=== PATIENT | female | born 1990 | race Two or more races ===

== ENCOUNTER 2017-02-15 22:33 | Emergency (ER) | payer OTHER ==
[~2017-02-15] VITALS: Ht 149.9 cm; Wt 57.2 kg
[2017-02-15 23:02] VITALS: BP 99/64
[2017-02-15 23:46] LABS: KETONES,URINE NEGATIVE (NEGATIVE); LEUKOCYTE ESTERASE ,URINE 2+ (NEGATIVE); NITRITE,URINE NEGATIVE (NEGATIVE); PH,URINE 8 (4.5-8.0); PROTEIN,URINE NEGATIVE (NEGATIVE); UROBILINOGEN,URINE 4 MG/DL (0.0-1.0)
[2017-02-15 23:57] LABS: APPEARANCE,URINE SLIGHTLY CLOUDY
[2017-02-16 00:05] VITALS: BP 105/62
[2017-02-16 00:14] LABS: RBC,URINE 0-2 /HPF (0 - 2); SQUAMOUS EPITHELIAL CELL,UR MANY /LPF (NONE/OCC)
[2017-02-16 00:15] LABS: AMORPHOUS SEDIMENT,UR MANY /LPF; BACTERIA,URINE FEW /HPF
[2017-02-16] MEDS ORDERED: NITROFURANTOIN100 M2 ORAL (00:30)
[2017-02-16] MEDS ORDERED: METROGEL-VAGINA70 G1 VAGIN (00:30)
[2017-02-16 00:35] VITALS: BP 105/62
--- NOTE | 2017-02-16 05:17 | Emergency Room Report ---
History of Present Illness General Chief Complaint: Female Urogenital Problems Source: Patient Present Illness HPI Patient presents with complaints of vaginal itching and mild discharge She also complains of dysuria Pain in the suprapubic area as 01/28 Denies any back or flank pain patient is not currently sexually active Denies any fevers or chills denies any rash Denies any fall or trauma Allergies: Coded Allergies: No Known Allergies (Unverified , 02/15/17) Patient History Past Medical History: see triage record Pertinent Family History: none Last Menstrual Period: 01/28/17 Now: No Reviewed Nursing Documentation: PMH: Agreed, PSxH: Agreed Nursing Documentation-PMH Past Medical History: No Stated History Review of Systems All Other Systems: negative except mentioned in HPI Physical Exam Vital Signs Date Time Temp Pulse Resp B/P Pulse Ox O2 Delivery O2 Flow Rate FiO2 02/15/17 22:53 98.1 68 16 96/62 99 Room Air Sp02 EP Interpretation: reviewed, normal General Appearance: well appearing, no apparent distress Head: normocephalic, atraumatic Eyes: bilateral eye EOMI, bilateral eye PERRL ENT: hearing grossly normal, normal pharynx, TMs + canals normal, uvula midline Neck: full range of motion, supple, no meningismus, no bony tend Respiratory: lungs clear, normal breath sounds, no rhonchi, no respiratory distress, no retraction, no accessory muscle use Cardiovascular #1: normal peripheral pulses, regular rate, rhythm, no edema, no gallop, no JVD, no murmur Gastrointestinal: normal bowel sounds, non tender, soft, no mass, no organomegaly, non-distended, no guarding, no hernia, no pulsatile mass, no rebound Genitourinary: no CVA tenderness Musculoskeletal: normal inspection Neurologic: oriented x3, responsive, director of enterprise strategy III-XII nml as tested, motor strength/ tone normal, sensory intact Psychiatric: mood/affect normal Skin: normal color, no rash, warm/dry, palpation normal Lymphatic: normal inspection, no adenopathy Medical Decision Making Diagnostic Impression: Primary Impression: vaginitis Additional Impression: uti ER Course Patient has clinical history findings of vaginitis further vaginal exam was not performed in the ER Patient treated symptomatically urine sample also shows some bacteria and patient placed on oral antibiotics Labs Test 02/15/17 23:20 Urine Color Pale yellow Urine Appearance Slightly cloudy Urine pH 8 (4.5-8.0) Urine Specific [place] 1.015 (1.005-1.035) Urine Protein Negative (NEGATIVE) Urine Glucose (UA) Negative (NEGATIVE) Urine Ketones Negative (NEGATIVE) Urine Occult Blood Negative (NEGATIVE) Urine Nitrite Negative (NEGATIVE) Urine Bilirubin Negative (NEGATIVE) Urine Urobilinogen 4 MG/DL (0.0-1.0) Urine Leukocyte Esterase 2+ (NEGATIVE) Urine RBC 0-2 /HPF (0 - 2) Urine WBC 2-4 /HPF (0 - 2) Urine Squamous Epithelial Cells Many /LPF (NONE/OCC) Urine Amorphous Sediment Many /LPF (NONE) Urine Bacteria Few /HPF (NONE) Urine HCG, Qualitative Negative Last Vital Signs Date Time Temp Pulse Resp B/P Pulse Ox O2 Delivery O2 Flow Rate FiO2 02/16/17 00:35 97.9 74 18 105/62 100 Room Air Status: improved Disposition: HOME, SELF-CARE Condition: Stable Scripts Metronidazole* (METROGEL-VAGINAL*) 70 Gm Gel.w.appl 1 APPL VAGIN EVERY 12 HOURS for 7 Days, #70 GM Prov: JAMEEL MATAMOROS D.O. 02/16/17 Nitrofurantoin Monohyd/M-Cryst* (MACROBID 100 MG*) 100 Mg Capsule 100 MG ORAL EVERY 12 HOURS for 5 Days, CAP Prov: JAMEEL MATAMOROS D.O. 02/16/17 Referrals: NON PHYSICIAN (PCP) Patient Instructions: Urinary Tract Infection, Vaginitis Additional Instructions: Patient is provided with the discharge instructions notified to follow up with primary doctor in the next 2-3 days otherwise return to the er with any worsening symptoms. Please note that this report is being documented using [employer] technology. This can lead to erroneous entry secondary to incorrect interpretation by the dictating instrument. JAMEEL MATAMOROS D.O. Feb 16, 2017 05:17
== END 2017-02-16 00:35 | disposition home or self-care (01) ==
LOC: EMR 23:25
DX: N76.0 Acute vaginitis (principal); N39.0 Urinary tract infection, site not specified
CPT/HCPCS: 81003; 81025; 99284

== ENCOUNTER 2017-02-19 21:34 | Emergency (ER) | payer OTHER ==
[~2017-02-19] VITALS: Ht 147.3 cm; Wt 59.0 kg
[~2017-02-19 21:34] MED LIST: METROGEL-VAGINA70 G1 VAGIN; NITROFURANTOIN100 M2 ORAL
--- NOTE | 2017-02-19 21:54 | Emergency Room Report ---
History of Present Illness General Chief Complaint: Female Urogenital Problems Source: Patient Present Illness HPI This is a 26-year-old female with no significant past medical history. She presents with chief complaint of vaginal itching and burning. Onset for last 5 days. She was here initially 2 days ago. Diagnosed with vaginitis and prescribe MetroGel and also given antibiotics or posterior tract infection. She said initially she felt some burning and itching in one to. Now the multiple pimple. Clear fluids try to pop it. Denies any fever chills denies any nausea vomiting. Burning with urination. Itchy. No other discharge. Allergies: Coded Allergies: No Known Allergies (Unverified , 02/15/17) Patient History Past Medical History: none, see triage record, old chart reviewed Past Surgical History: other Pertinent Family History: none Social History: Denies: smoking Last Menstrual Period: END OF LAST MONTH Now: No : 6 Para: 1 Immunizations: other Reviewed Nursing Documentation: PMH: Agreed, PSxH: Agreed Review of Systems Eye: Denies: blurred vision, eye pain ENT: Denies: ear pain, nose congestion, throat swelling Respiratory: Denies: cough, shortness of breath Cardiovascular: Denies: chest pain, palpitations Gastrointestinal: Denies: abdominal pain, diarrhea, nausea, vomiting Genitourinary: Reports: dysuria Musculoskeletal: Denies: back pain, joint pain Skin: Denies: rash Neurological: Denies: headache, numbness Endocrine: Denies: increased thirst, increased urine Hematologic/Lymphatic: Denies: easy bruising All Other Systems: negative except mentioned in HPI Physical Exam Vital Signs Date Time Temp Pulse Resp B/P Pulse Ox O2 Delivery O2 Flow Rate FiO2 02/19/17 21:39 97.5 83 18 107/73 98 Room Air vitals normal Sp02 EP Interpretation: reviewed, normal General Appearance: well appearing, no apparent distress, alert Head: normocephalic, atraumatic Eyes: bilateral eye EOMI, bilateral eye PERRL ENT: hearing grossly normal, normal pharynx Neck: full range of motion, supple, no meningismus Respiratory: chest non-tender, lungs clear, normal breath sounds Cardiovascular #1: regular rate, rhythm, no murmur Gastrointestinal: normal bowel sounds, non tender, no mass, no organomegaly, no bruit, non-distended Genitourinary: other - exam done with female RN as buyer. She has vesicular lesions to the outside of the labia majora. no internal lesions. Musculoskeletal: back normal, gait/station normal, normal range of motion Psychiatric: mood/affect normal Skin: warm/dry Medical Decision Making Diagnostic Impression: Primary Impression: Herpes simplex labialis ER Course She presents with lesion concerning for herpes labialis. His been ongoing for for 5 days now. Outside the window for acyclovir. We'll treat symptomatically. We'll discharge home. Last Vital Signs Date Time Temp Pulse Resp B/P Pulse Ox O2 Delivery O2 Flow Rate FiO2 02/19/17 21:39 97.5 83 18 107/73 98 Room Air Status: improved Disposition: HOME, SELF-CARE Condition: Stable Scripts Lidocaine Hcl (LIDOCAINE HCL) 5 Ml Jel.pf.ade 5 ML MM QID, #15 ML Prov: GAURAV MENDOZA M.D. 02/19/17 Additional Instructions: Followup with your Dr. in 7 days. Return if symptom worsen. GAURAV MENDOZA M.D. February 19, 2017 21:54
[2017-02-19] MEDS ORDERED: LIDOCAINE HCL5 ML MM (22:20)
[2017-02-19 22:36] VITALS: BP 106/66
== END 2017-02-19 22:41 | disposition home or self-care (01) ==
LOC: EMR 22:06
DX: B00.1 Herpesviral vesicular dermatitis (principal)
CPT/HCPCS: 99283

== ENCOUNTER 2018-02-26 18:52 | Emergency (ER) | payer OTHER ==
[~2018-02-26] VITALS: Ht 149.9 cm; Wt 56.7 kg
[~2018-02-26 18:52] MED LIST changes: +LIDOCAINE HCL5 ML MM
[2018-02-26 19:19] VITALS: BP 93/62
[2018-02-26] MEDS ORDERED: Ketorolac 60mg Inj IM ONE (20:15)
--- NOTE | 2018-02-26 20:27 | Emergency Room Report ---
History of Present Illness General Chief Complaint: Back Pain-No Injury Source: Patient Present Illness HPI 27-year-old female presents to the emergency department complaining of 8 out of 10 in severity left-sided low back pain that she has been having for approximately one year however she is having moderate exacerbation since yesterday. Patient denies recent trauma or fall she reports moving several pallets yesterday at work otherwise no strenuous activities. Patient denies fevers, chills, recent spinal procedures, history of neoplastic disease. She denies radiation of her pain. She denies dysuria, urinary frequency, urgency or abdominal pain. Denies numbness tingling or loss of sensation or gross motor movements of the extremities, incontinence of bowel or bladder. Denies CP, Palpitations, LOC, AMS, dizziness, Changes in Vision, Sensation, paresthesias, or a sudden severe headache. Allergies: Coded Allergies: No Known Allergies (Unverified , 02/15/17) Patient History Past Medical History: see triage record Past Surgical History: none Pertinent Family History: none Last Menstrual Period: unknown, on control Now: No : 5 Para: 5 Reviewed Nursing Documentation: PMH: Agreed; PSxH: Agreed Review of Systems All Other Systems: negative except mentioned in HPI Physical Exam Vital Signs Date Time Temp Pulse Resp B/P (MAP) Pulse Ox O2 Delivery O2 Flow Rate FiO2 02/26/18 19:09 98.1 67 18 93/62 98 Room Air 98.1 Sp02 EP Interpretation: reviewed, normal General Appearance: no apparent distress, alert, GCS 15, non-toxic Head: normocephalic, atraumatic Eyes: bilateral eye normal inspection, bilateral eye PERRL ENT: hearing grossly normal, normal voice Neck: full range of motion, no bony tend Respiratory: chest non-tender, lungs clear, normal breath sounds, speaking full sentences Cardiovascular #1: regular rate, rhythm Gastrointestinal: normal bowel sounds, non tender, soft Genitourinary: normal inspection, no CVA tenderness Musculoskeletal: back normal, gait/station normal, normal range of motion, other - No midline bony tenderness no evidence of infection no evidence of cauda equina on physical exam. Tenderness is in the left paraspinal musculature of the lumbar spine. She is ambulatory with a steady gait and has full range of motion, tender - left lumbar paraspinal musculature Neurologic: alert, oriented x3, responsive, motor strength/tone normal, sensory intact, normal gait, speech normal, grossly normal Psychiatric: judgement/insight normal Skin: normal color, no rash, warm/dry, well hydrated Medical Decision Making PA Attestation Dr. Valdivia is my supervising physician whom pt. management has been discussed with. Diagnostic Impression: Primary Impression: Back pain Qualified Codes: M54.5 - Low back pain Additional Impression: Muscle spasm of back ER Course 27-year-old female presents to the emergency department complaining of 8 out of 10 in severity left-sided low back pain that she has been having for approximately one year however she is having moderate exacerbation since yesterday. Patient denies recent trauma or fall she reports moving several pallets yesterday at work otherwise no strenuous activities. Patient denies fevers, chills, recent spinal procedures, history of neoplastic disease. She denies radiation of her pain. She denies dysuria, urinary frequency, urgency or abdominal pain. Denies numbness tingling or loss of sensation or gross motor movements of the extremities, incontinence of bowel or bladder. Denies CP, Palpitations, LOC, AMS, dizziness, Changes in Vision, Sensation, paresthesias, or a sudden severe headache. Ddx considered but are not limited to Fracture, dislocation, contusion, epidural abscess, Sprain/Strain/Spasm Vital signs: are WNL, pt. is afebrile H&PE are most consistent with muscle spasm- No midline bony tenderness no evidence of infection no evidence of cauda equina on physical exam. Tenderness is in the left paraspinal musculature of the lumbar spine. She is ambulatory with a steady gait and has full range of motion. No CVA tenderness ORDERS: none required at this time.--Diagnosis is clinical ED INTERVENTIONS: -Toradol IM DISCHARGE: At this time pt. is stable for d/c to home. Will provide printed patient care instructions, and any necessary prescriptions. Care plan and follow up instructions have been discussed with the patient prior to discharge. Last Vital Signs Date Time Temp Pulse Resp B/P (MAP) Pulse Ox O2 Delivery O2 Flow Rate FiO2 02/26/18 20:20 98.1 02/26/18 19:19 71 18 93/62 98 Room Air Disposition: HOME, SELF-CARE Condition: Stable Scripts Lidocaine (Lidoderm) 1 Each Adh..patch 1 PATCH TOPIC DAILY, #30 PATCH 0 Refills Patch(es) may remain in place for up to 12 hours in any 24-hour period. Prov: Cindy Gaviria 02/26/18 Methocarbamol* (ROBAXIN*) 500 Mg Tablet 1000 MG PO TID for 7 Days, #42 TAB 0 Refills Prov: Cindy Gaviria 02/26/18 Referrals: [facility],REFERRING (PCP) Departure Forms: Return to Work Return to Work Date: February 28, 2018 Work Restrictions: No Heavy Lifting, No Prolonged Standing Other Restrictions: light duty x 1 week. Return to Full Activity: March 07, 2018 Patient Instructions: Back Pain, Adult Additional Instructions: Take medications as directed. Follow up with a Primary Care Provider in 3-5 days, even if your symptoms have resolved. --Please review list of primary care clinics, if you do not already have a primary care provider Return sooner to ED if new symptoms occur, or current symptoms become worse. Do not drink alcohol, drive, or operate heavy machinery while taking Muscle Relaxers as this may cause drowsiness. - Please note that this Emergency Department Report was dictated using [employer] technology software, occasionally this can lead to erroneous entry secondary to interpretation by the dictation equipment. Cindy Gaviria February 26, 2018 20:27
[2018-02-26] MEDS ORDERED: ROBAXIN500 MG PO (20:28)
[2018-02-26] MEDS ORDERED: LIDODERM700 M1 TOPIC (20:28)
[2018-02-26 20:37] VITALS: BP 93/62
== END 2018-02-26 20:40 | disposition home or self-care (01) ==
LOC: EMR 19:48
DX: M54.5 Low back pain (principal); M62.830 Muscle spasm of back
CPT/HCPCS: 96372; 99284

== ENCOUNTER 2018-12-02 20:53 | Emergency (ER) | payer SELFPAY ==
[~2018-12-02] VITALS: Ht 147.3 cm; Wt 65.3 kg
[~2018-12-02 20:53] MED LIST changes: +LIDODERM700 M1 TOPIC; +ROBAXIN500 MG PO
[2018-12-02] MEDS ORDERED: PEPTO-BISMOL262 M1 PO (21:14)
[2018-12-02 21:25] VITALS: BP 105/74
--- NOTE | 2018-12-02 21:25 | NUR ---
ED Nurse Note: PT CAME TO ED FROM HOME C/O ABD PAIN X1 DAY. PER PT SHE HAD A BURRITO LAST NIGHT. TODAY SHE HAS BEEN HAVING WATERY DIARRHEA AND CRAMPING ABDOMEN, PAIN IS 7/10
[2018-12-02] MEDS: Ketorolac 30mg Inj IV ONE (21:45)
[2018-12-02 21:52] LABS: BASOPHILS % (AUTO) 0.5 % (0.0-2.0); EOSINOPHILS % (AUTO) 1.4 % (0.0-3.0); HEMATOCRIT 42.4 % (37.0-47.0); HEMOGLOBIN 14.5 G/DL (12.0-16.0); LYMPHOCYTES % (AUTO) 12.6 % (20.0-45.0); MEAN CORPUSCULAR VOLUME 91 FL (80-99); MONOCYTES % (AUTO) 5.1 % (1.0-10.0); NEUTROPHILS % (AUTO) 80.4 % (45.0-75.0); PLATELET COUNT 232 K/UL (150-450); RED BLOOD COUNT 4.66 M/UL (4.20-5.40); RED CELL DISTRIBUTION WIDTH 11.2 % (11.6-14.8); WHITE BLOOD COUNT 14.7 K/UL (4.8-10.8)
[2018-12-02 21:57] LABS: APPEARANCE,URINE SLIGHTLY CLOUDY; BILIRUBIN, URINE NEGATIVE (NEGATIVE); GLUCOSE, URINE (UA) NEGATIVE (NEGATIVE); KETONES,URINE NEGATIVE (NEGATIVE); LEUKOCYTE ESTERASE ,URINE 2+ (NEGATIVE); NITRITE,URINE NEGATIVE (NEGATIVE); PH,URINE 5 (4.5-8.0); PROTEIN,URINE 1+ (NEGATIVE); UROBILINOGEN,URINE NORMAL MG/DL (0.0-1.0)
[2018-12-02 22:01] LABS: COLOR,URINE YELLOW
[2018-12-02 22:08] LABS: ANION GAP 12 mmol/L (5-15); BLOOD UREA NITROGEN 11 mg/dL (7-18); CALCIUM 8.8 MG/DL (8.5-10.1); CARBON DIOXIDE 20 MMOL/L (21-32); CHLORIDE 103 MMOL/L (98-107); CREATININE 0.8 MG/DL (0.55-1.30); POTASSIUM 3.3 MMOL/L (3.5-5.1); SODIUM 135 MMOL/L (136-145)
[2018-12-02 22:13] LABS: ALANINE AMINOTRANSFERASE 30 U/L (12-78); ALBUMIN 3.9 G/DL (3.4-5.0); ALBUMIN/GLOBULIN RATIO 0.9 (1.0-2.7); ALKALINE PHOSPHATASE 95 U/L (46-116); ASPARTATE AMINO TRANSFERASE 20 U/L (15-37); BILIRUBIN,TOTAL 0.5 MG/DL (0.2-1.0)
[2018-12-02] MEDS ORDERED: MACROBID100 MG ORAL (22:14)
[2018-12-02] MEDS ORDERED: ZOFRAN4 MG ORAL (22:14)
--- NOTE | 2018-12-02 22:15 | Emergency Room Report ---
History of Present Illness General Chief Complaint: Nausea, Vomiting, and Diarrhea Source: Patient Present Illness HPI Is a 28-year-old female with no significant past nuchal history. She presents with chief complaint of nausea vomiting and diarrhea. Onset this morning. Vomiting started first and then now diarrhea. Vomiting is nonbloody nonbilious. Diarrhea is watery. Also with dominant cramps. Denies any other complaint. No fever chills but no sick contact. Allergies: Coded Allergies: No Known Allergies (Unverified , 02/15/17) Patient History Past Medical History: none, see triage record, old chart reviewed Past Surgical History: other Pertinent Family History: none Social History: Denies: smoking Last Menstrual Period: 2017 Now: No : 6 Para: 5 Immunizations: other Reviewed Nursing Documentation: PMH: Agreed; PSxH: Agreed Nursing Documentation-PMH Past Medical History: No Stated History Review of Systems Eye: Denies: eye pain, blurred vision ENT: Denies: ear pain, nose congestion, throat swelling Respiratory: Denies: cough, shortness of breath Cardiovascular: Denies: chest pain, palpitations Gastrointestinal: Reports: abdominal pain, diarrhea, nausea, vomiting Musculoskeletal: Denies: back pain, joint pain Skin: Denies: rash Neurological: Denies: headache, numbness Endocrine: Denies: increased thirst, increased urine Hematologic/Lymphatic: Denies: easy bruising All Other Systems: negative except mentioned in HPI Physical Exam Vital Signs Date Time Temp Pulse Resp B/P (MAP) Pulse Ox O2 Delivery O2 Flow Rate FiO2 12/02/18 21:09 98.1 86 16 105/74 97 vital normal Sp02 EP Interpretation: reviewed, normal General Appearance: well appearing, no apparent distress, alert Head: normocephalic, atraumatic Eyes: bilateral eye PERRL, bilateral eye EOMI ENT: hearing grossly normal, normal pharynx Neck: full range of motion, supple, no meningismus Respiratory: chest non-tender, lungs clear, normal breath sounds Cardiovascular #1: regular rate, rhythm, no murmur Gastrointestinal: normal bowel sounds, non tender, no mass, no organomegaly, no bruit, non-distended Musculoskeletal: back normal, gait/station normal, normal range of motion Psychiatric: mood/affect normal Skin: warm/dry Medical Decision Making Diagnostic Impression: Primary Impression: Nausea, vomiting, and diarrhea Additional Impression: UTI (urinary tract infection) Qualified Codes: N30.00 - Acute cystitis without hematuria ER Course Patient with nausea vomiting and diarrhea. Most likely gastroenteritis from a viral etiology. Unlikely to be food poisoning. She looks well. Tolerate by mouth. Urine may show a mild urinary tract infection. We'll go ahead and put on antibiotics. No evidence of acute abdomen or obstruction. Lab Results Impression labs showed mild leukocytosis Last Vital Signs Date Time Temp Pulse Resp B/P (MAP) Pulse Ox O2 Delivery O2 Flow Rate FiO2 12/02/18 21:25 98.1 86 16 105/74 97 Status: improved Disposition: HOME, SELF-CARE Condition: Stable Scripts Nitrofurantoin Monohyd/M-Cryst (Nitrofurantoin Cross-Mcr 100 mg) 100 Mg Capsule 100 MG ORAL Q12H, #14 CAP Prov: Saul Mesa MD 12/02/18 Ondansetron (Zofran) 4 Mg Tablet 4 MG ORAL Q6H PRN for Nausea & Vomiting, #10 TAB 0 Refills Prov: Saul Mesa MD 12/02/18 Additional Instructions: Follow-up with your Dr. in 3-5 days. Advance diet as tolerated. Increase fluid. Return if worse. Sual Mesa MD Dec 02, 2018 22:15
[2018-12-02] MEDS: cefTRIAXone 1 GM in NS 55 ML IVPB ONE (22:17)
--- NOTE | 2018-12-02 22:35 | NUR ---
ED Nurse Note: pt is dc per ermd order, pt is aox4, pt was given dc instruction and prescription, pt verbalized understandng, pt is able to ambulate with steady gait, pt took all belongings pt is on room air. pt accompanied by
[2018-12-02 22:36] VITALS: BP 98/61
== END 2018-12-02 22:36 | disposition home or self-care (01) ==
LOC: EMR 21:30
DX: R11.2 Nausea with vomiting, unspecified (principal); R19.7 Diarrhea, unspecified; N39.0 Urinary tract infection, site not specified
CPT/HCPCS: 36415; 80053; 81003; 81025; 83690; 85025; 96361; 96365; 96375; 99284; J0696; J1885; J2405

== ENCOUNTER 2020-03-28 09:39 | Emergency (ER) | payer OTHER ==
[~2020-03-28] VITALS: Ht 149.9 cm; Wt 61.2 kg
[~2020-03-28 09:39] MED LIST changes: +MACROBID100 MG ORAL; +PEPTO-BISMOL262 M1 PO; +ZOFRAN4 MG ORAL
--- NOTE | 2020-03-28 09:59 | Emergency Room Report ---
History of Present Illness General Chief Complaint: Vaginal Source: Patient Present Illness HPI Disclaimer: Please note that this report is being documented using [employer] technology. This can lead to erroneous entry secondary to incorrect interpretation by the dictating instrument. HPI: 29-year-old female with a past history of STI presents for evaluation of pelvic pain and discharge. Patient states she has been experiencing lower pelvic cramping for the past 2 to 3 days as well as a thick white vaginal discharge. Reports outpatient urine test which was positive last week. Cannot recall LMP but believes over 1 month. Periods were regular prior. Does not use control, does not use barrier contraceptive. Last intercourse was 1 week ago. She is sexually active with one partner. Prior history of chlamydia which was treated with antibiotics. Denies dyspareunia or a.m., dysuria, hematuria, flank pain, upper abdominal pain, nausea, vomiting, fever, chills, diarrhea. PMH: STI PSH: x5 Allergies: Denies Social Hx: Denies drug or alcohol abuse Allergies: Coded Allergies: No Known Allergies (Unverified , 02/15/17) COVID-19 Screening Contact w/high risk pt: No Recent Travel to affected area: No Experienced COVID-19 symptoms?: No COVID-19 Testing performed [employer]: No Patient History Now: Yes Nursing Documentation-PMH Past Medical History: No History, Except For Review of Systems All Other Systems: negative except mentioned in HPI Physical Exam Vital Signs Date Time Temp Pulse Resp B/P (MAP) Pulse Ox O2 Delivery O2 Flow Rate FiO2 03/28/20 09:45 98.4 69 16 107/72 (84) 99 Room Air General: Awake and alert, appears mildly uncomfortable HEENT: NC/AT. EOMI. Cardiovascular: RRR. S1 and S2 normal. No murmur appreciated Resp: Normal work of breathing. No cough, wheezing or crackles appreciated Abdomen: Abdomen is soft, nondistended. Tender to palpation in the suprapubic region. No rebound. : There is a mucopurulent white discharge coming from the cervical os. No bleeding, no lesions identified. Positive cervical motion tenderness. There is right-sided adnexal tenderness. No mass palpable Skin: Intact. No abrasions, laceration or rash over the exposed skin MSK: Normal tone and bulk. Moving all extremities. No obvious deformity. Neuro: Awake and alert. Mentating appropriately. Medical Decision Making Diagnostic Impression: Primary Impression: PID (acute pelvic inflammatory disease) Additional Impression: ER Course This is a 29-year-old G6, P5 female presenting for 3 days of vaginal discharge and pelvic pain. Concern for pelvic inflammatory disease, tubo-ovarian abscess , type of , UTI, pyelonephritis, cervicitis. Obtained labs, and including urinalysis, type and screen and hCG quant as well as pelvic ultrasound. Wet mount shows moderate clue cells, yeast, white cells.Urinalysis shows 2+ leukocyte esterase but otherwise few bacteria and only 2-4 white cells. Chemistry and CBC within normal limits. hCG quant is 5159 ultrasound imaging shows a 9 mm fluid collection in the upper endometrium may represent a small gestational sac but the pole was not visualized. There was no mention of a tubo-ovarian abscess. Patient's presentation was consistent with pelvic inflammatory disease. She will be given with antibiotics including Flagyl and will require admission given her status. She will be transferred to [facility]. Dr. Gracia accepting physician Laboratory Tests Test 03/28/20 10:05 03/28/20 10:27 Urine Color Pale yellow Urine Appearance Clear Urine pH 5 (4.5-8.0) Urine Specific [place] 1.005 (1.005-1.035) Urine Protein Negative (NEGATIVE) Urine Glucose (UA) Negative (NEGATIVE) Urine Ketones Negative (NEGATIVE) Urine Blood Negative (NEGATIVE) Urine Nitrite Negative (NEGATIVE) Urine Bilirubin Negative (NEGATIVE) Urine Urobilinogen Normal MG/DL (0.0-1.0) Urine Leukocyte Esterase 2+ (NEGATIVE) H Urine RBC 0 /HPF (0 - 2) Urine WBC 2-4 /HPF (0 - 2) Urine Squamous Epithelial Cells Few /LPF (NONE/OCC) Urine Bacteria Few /HPF (NONE) Urine HCG, Qualitative Positive (NEGATIVE) White Blood Count 9.8 K/UL (4.8-10.8) Red Blood Count 4.28 M/UL (4.20-5.40) Hemoglobin 14.0 G/DL (12.0-16.0) Hematocrit 37.1 % (37.0-47.0) Mean Corpuscular Volume 87 FL (80-99) Mean Corpuscular Hemoglobin 32.6 PG (27.0-31.0) H Mean Corpuscular Hemoglobin Concent 36.2 G/DL (32.0-36.0) H Red Cell Distribution Width 10.9 % (11.6-14.8) L Platelet Count 245 K/UL (150-450) Mean Platelet Volume 7.7 FL (6.5-10.1) Neutrophils (%) (Auto) % (45.0-75.0) Lymphocytes (%) (Auto) % (20.0-45.0) Monocytes (%) (Auto) % (1.0-10.0) Eosinophils (%) (Auto) % (0.0-3.0) Basophils (%) (Auto) % (0.0-2.0) Differential Total Cells Counted 100 Neutrophils % (Manual) 79 % (45-75) H Lymphocytes % (Manual) 18 % (20-45) L Monocytes % (Manual) 3 % (1-10) Eosinophils % (Manual) 0 % (0-3) Basophils % (Manual) 0 % (0-2) Band Neutrophils 0 % (0-8) Platelet Estimate Adequate Platelet Morphology Normal Red Blood Cell Morphology Normal Sodium Level 140 MMOL/L (136-145) Potassium Level 3.6 MMOL/L (3.5-5.1) Chloride Level 105 MMOL/L (98-107) Carbon Dioxide Level 22 MMOL/L (21-32) Anion Gap 13 mmol/L (5-15) Blood Urea Nitrogen 7 mg/dL (7-18) Creatinine 0.8 MG/DL (0.55-1.30) Estimated Glomerular Filtration Rate > 60 mL/min (>60) Glucose Level 93 MG/DL (74-106) Calcium Level 8.4 MG/DL (8.5-10.1) L Human Chorionic Gonadotropin, Qual Positive (NEGATIVE) Human Chorionic Gonadotropin, Quant 5159 mIU/mL (1-6) H Microbiology Date/Time Source Procedure Growth Status 03/28/20 10:03 Vaginal Wet Prep - Final Complete CT/MRI/US Diagnostic Results CT/MRI/US Diagnostic Results : Impression Procedure: US OB 1st Trimester Gestation Indication: Reason For Exam: ABD PAIN Technique: Transabdominal and transvaginal images of the pelvis. Doppler interrogation of the ovaries Comparison: none Findings: Uterus measures 10.8 cm length by 4.2 cm AP. Within the endometrium, there is a small fluid collection sac with a small surrounding echogenic rim. No pole, yolk sac, or heart activity demonstrated. Mean sac diameter is 9 mm, corresponding to an estimated gestational age of 4 weeks 5 days. No evidence of subchorionic hemorrhage. No myometrial abnormality. There is trace free cul-de- sac fluid. Both ovaries are normal in size and demonstrate normal flow on color Doppler Impression: 9 mm fluid collection within the upper endometrium, probably represents a small gestational sac, if so, estimated gestational age 4 weeks 5 days. Recommend follow-up with serial beta-hCGs Small amount of free cul-de-sac fluid, most likely physiologic Dictated By: Farrukh Urias MD Electronically Signed By: Farrukh Urias MD Signed Date/Time 03/28/20 1212 CC: Juan Willis MD Last Vital Signs Date Time Temp Pulse Resp B/P (MAP) Pulse Ox O2 Delivery O2 Flow Rate FiO2 03/28/20 09:45 98.4 69 16 107/72 (84) 99 Room Air Disposition: SHORT-TERM HOSP Condition: Stable Scripts No Active Prescriptions or Reported Meds Juan Willis MD Mar 28, 2020 09:59
[2020-03-28 10:06] VITALS: BP 110/71
[2020-03-28 10:53] LABS: APPEARANCE,URINE CLEAR; BILIRUBIN, URINE NEGATIVE (NEGATIVE); COLOR,URINE PALE YELLOW; GLUCOSE, URINE (UA) NEGATIVE (NEGATIVE); KETONES,URINE NEGATIVE (NEGATIVE); LEUKOCYTE ESTERASE ,URINE 2+ (NEGATIVE); NITRITE,URINE NEGATIVE (NEGATIVE); PH,URINE 5 (4.5-8.0); PROTEIN,URINE NEGATIVE (NEGATIVE); UROBILINOGEN,URINE NORMAL MG/DL (0.0-1.0)
[2020-03-28 10:55] LABS: ANION GAP 13 mmol/L (5-15); BLOOD UREA NITROGEN 7 mg/dL (7-18); CALCIUM 8.4 MG/DL (8.5-10.1); CARBON DIOXIDE 22 MMOL/L (21-32); CHLORIDE 105 MMOL/L (98-107); CREATININE 0.8 MG/DL (0.55-1.30); POTASSIUM 3.6 MMOL/L (3.5-5.1); SODIUM 140 MMOL/L (136-145)
[2020-03-28] MEDS ORDERED: Azithromycin 250mg tab ORAL ONE (11:00)
[2020-03-28] MEDS ORDERED: Morphine Sulfate 2mg/ml Inj(IV/IM USE ONLY) IVP ONE (11:00)
[2020-03-28 11:04] LABS: HEMATOCRIT 37.1 % (37.0-47.0); MEAN CORPUSCULAR VOLUME 87 FL (80-99); PLATELET COUNT 245 K/UL (150-450); RED BLOOD COUNT 4.28 M/UL (4.20-5.40); RED CELL DISTRIBUTION WIDTH 10.9 % (11.6-14.8); WHITE BLOOD COUNT 9.8 K/UL (4.8-10.8)
[2020-03-28] MEDS ORDERED: metroNIDAZOLE 500mg tab ORAL ONE (12:00)
[2020-03-28] MEDS ORDERED: cefOXitin 2gm Inj IVP SCH (12:00)
--- NOTE | 2020-03-28 12:17 | Diagnostic Imaging Report ---
Indication: Reason For Exam: ABD PAIN Technique: Transabdominal and transvaginal images of the pelvis. Doppler interrogation of the ovaries Comparison: none Findings: Uterus measures 10.8 cm length by 4.2 cm AP. Within the endometrium, there is a small fluid collection sac with a small surrounding echogenic rim. No pole, yolk sac, or heart activity demonstrated. Mean sac diameter is 9 mm, corresponding to an estimated gestational age of 4 weeks 5 days. No evidence of subchorionic hemorrhage. No myometrial abnormality. There is trace free cul-de-sac fluid. Both ovaries are normal in size and demonstrate normal flow on color Doppler Impression: 9 mm fluid collection within the upper endometrium, probably represents a small gestational sac, if so, estimated gestational age 4 weeks 5 days. Recommend follow-up with serial beta-hCGs Small amount of free cul-de-sac fluid, most likely physiologic
[2020-03-28 13:30] VITALS: BP 109/68
[2020-03-28 14:08] VITALS: BP 114/72
== END 2020-03-28 14:10 | disposition short-term general hospital (02) ==
LOC: EMR 10:10
DX: O23.591 Infection of other part of genital tract in pregnancy, first trimester (principal); Z3A.01 Less than 8 weeks gestation of pregnancy
CPT/HCPCS: 36415; 76801; 76817; 80048; 81003; 81025; 84702; 84703; 85007; 85025; 86850; 86900; 86901; 87210; 96374; 96375; J0694; J2270; Q0144; Z7502; 99284